=== PATIENT | male | born 1995 | race Caucasian/White ===

== ENCOUNTER 2016-06-09 13:17 | Emergency (ER) | payer SELFPAY ==
[2016-06-09] MEDS ORDERED: TETRACAINE HCL 0.5% OPH SOLN 0.6 ML DROPERETTE OU ONE (13:35)
--- NOTE | 2016-06-09 13:36 | ER Document Report ---
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 6 months ago he had a blowout fracture of the right orbit and right mandible. TRAVEL OUTSIDE OF THE [place] IN LAST 30 DAYS: No - Related Data Allergies/Adverse Reactions: No Known Allergies Allergy (Verified 06/09/16 13:34) Past Medical History - Immunizations Immunizations up to date: Yes Hx Diphtheria, Pertussis, Tetanus Vaccination: Yes
--- NOTE | 2016-06-09 14:59 | ER Document Report ---
ED General - General Chief Complaint: Eye Pain Stated Complaint: EYE PAIN Mode of Arrival: Ambulatory TRAVEL OUTSIDE OF THE [place] IN LAST 30 DAYS: No - HPI Patient complains to provider of: right eye pain Notes: Patient coming in for right eye pain redness with and will discharge earlier this morning. Patient's was seen by myself approximately 6 months ago for a right orbital blowout fracture. Patient followed up with surgery in [place] the surgery was performed patient states he has not followed up since that time. Patient denies any new trauma. - Related Data Allergies/Adverse Reactions: No Known Allergies Allergy (Verified 06/09/16 13:34) Past Medical History - General Information source: Patient - Social History Smoking Status: Never Smoker Chew tobacco use (# tins/day): No Frequency of alcohol use: None Drug Abuse: None Family History: Reviewed & Not Pertinent Patient has suicidal ideation: No Patient has homicidal ideation: No Renal/ Medical History: Denies: Hx Peritoneal Dialysis - Immunizations Immunizations up to date: Yes Hx Diphtheria, Pertussis, Tetanus Vaccination: Yes Review of Systems - Review of Systems Constitutional: No symptoms reported EENT: Eye pain, Eye discharge Cardiovascular: No symptoms reported Respiratory: No symptoms reported Gastrointestinal: No symptoms reported Genitourinary: No symptoms reported Male Genitourinary: No symptoms reported Musculoskeletal: No symptoms reported Skin: No symptoms reported Hematologic/Lymphatic: No symptoms reported Neurological/Psychological: No symptoms reported -: Yes All other systems reviewed and negative Physical Exam - Vital signs Vitals: Pulse Resp BP Pulse Ox 70 18 138/73 H 100 06/09/16 13:21 06/09/16 13:21 06/09/16 13:21 06/09/16 13:21 Interpretation: Normal - General General appearance: Appears well, Alert - HEENT Head: Normocephalic, Atraumatic Eyes: Normal Conjunctiva: Injected Cornea: Normal Extraocular movements intact: Yes Eyelashes: Normal Pupils: PERRL Visual acuity- Right eye: 20/40 Visual acuity- Left eye: 20/30 Visual acuity- Both eyes: 20/30 Corrective lenses worn: No Right intraocular pressure: 20 Left intraocular pressure: 16 - Respiratory Respiratory status: No respiratory distress Chest status: Nontender Breath sounds: Normal Chest palpation: Normal - Cardiovascular Rhythm: Regular Heart sounds: Normal auscultation Murmur: No - Abdominal Inspection: Normal Distension: No distension Bowel sounds: Normal Tenderness: Nontender Organomegaly: No organomegaly - Back Back: Normal, Nontender - Extremities General upper extremity: Normal inspection, Nontender, Normal color, Normal ROM , Normal temperature General lower extremity: Normal inspection, Nontender, Normal color, Normal ROM , Normal temperature, Normal weight bearing. No: Efra's sign - Neurological Neuro grossly intact: Yes Cognition: Normal Orientation: AAOx4 Purlear Coma Scale Eye Opening: Spontaneous [place]ako Coma Scale Verbal: Oriented Purlear Coma Scale Motor: Obeys Commands Flako Coma Scale Total: 15 Speech: Normal Motor strength normal: LUE, RUE, LLE, RLE Sensory: Normal - Psychological Associated symptoms: Normal affect, Normal mood - Skin Skin Temperature: Warm Skin Moisture: Dry Skin Color: Normal Course - Re-evaluation Re-evalutation: 06/09/16 14:57 Patient's examination is normal. Initially patient states he was not taking anything for pain patient will likely has neuropathic pain from the fracture would recommend a rotten. Patient states he is Arcenio taken Neurontin. Explained to patient he can continue to take his Neurontin we will given Polytrim antibiotics eyedrops for possible conjunctivitis is that both of his eyes are injected. Patient is to follow-up with the surgeon in [place]. 06/09/16 14:58 Of note saw the patient for his initial visit and was given a prescription for oxycodone. Patient followed up with his surgeon and then returned stating that the surgeon in [place] because they would not cooperate was not given any narcotics. I did provide the patient with a protection for narcotics today reviewing the patient's narcotic database shows 2 prescriptions from myself and appropriate dates last one being on the and a prescription given to the patient from his facial surgeon that was filled on the . Apparently the surgeon did provide the patient with narcotics Further information can be found my note from initial visit. - Vital Signs Vital signs: Temp Pulse Resp BP Pulse Ox 70 18 138/73 H 100 06/09/16 13:21 06/09/16 13:21 06/09/16 13:21 06/09/16 13:21 Discharge - Discharge Clinical Impression: Ocular pain, right eye Conjunctivitis Qualifiers: Conjunctivitis type: acute Acute conjunctivitis type: unspecified Laterality: bilateral Qualified Code(s): H10.33 - Unspecified acute conjunctivitis, bilateral Condition: Good Disposition: HOME, SELF-CARE Instructions: Conjunctivitis ([facility]) Additional Instructions: Please continue your Neurontin at home. He may also take Motrin and Tylenol for your eye pain. Follow-up with your surgeon in [place] for further evaluation. Your evaluation day reveals no critical etiology for your pain. More likely this is due to disruption of the nerves underneath the right eye. This is a good sign as that is indication that the bones and nerves are still healing Use eyedrops as directed He may also take Benadryl at home for sleep Forms: Return to Work
[2016-06-09] MEDS ORDERED: POLYMYXIN B SULFATE/TMP OPH SOLN 10 ML OU SCH (15:15)
[2016-06-09 15:21] VITALS: BP 122/80
== END 2016-06-09 15:20 | disposition home or self-care (01) ==
LOC: ER 13:17
DX: H57.11 Ocular pain, right eye (principal); H10.33 Unspecified acute conjunctivitis, bilateral
CPT/HCPCS: 99283; J3490

== ENCOUNTER 2016-09-03 12:46 | Emergency (ER) | payer SELFPAY ==
[2016-09-03] MEDS ORDERED: FAMOTIDINE 20 MG TABLET PO ONE (12:57)
[2016-09-03] MEDS ORDERED: DIPHENHYDRAMINE HCL 25 MG CAPSULE PO ONE (12:57)
--- NOTE | 2016-09-03 12:58 | ER Document Report ---
ED Medical Screen (RME) - General Chief Complaint: Swelling Stated Complaint: LEFT HAND PAIN, SWELLING Notes: Patient reports last night he was on [place] on [place] in [facility] when he felt a severe sharp stinging to his left lateral hand felt like something bit him. He reports there was a lot of bugs flying last night due to the extremely warm weather we've had recently. The hand began swelling and has been getting progressively worse. Now the left dorsal hand is very swollen with erythema and tenderness and bruise type feeling. He has never reacted like this to a wasp sting in the past. I have greeted and performed a rapid initial assessment of this patient. A comprehensive ED assessment and evaluation of the patient, analysis of test results and completion of the medical decision making process will be conducted by additional ED providers. TRAVEL OUTSIDE OF THE [place] IN LAST 30 DAYS: No - Related Data Allergies/Adverse Reactions: No Known Allergies Allergy (Verified 06/09/16 13:34) Past Medical History Renal/ Medical History: Denies: Hx Peritoneal Dialysis - Immunizations Immunizations up to date: Yes Hx Diphtheria, Pertussis, Tetanus Vaccination: Yes Physical Exam - Vital signs Vitals: Temp Pulse Resp BP Pulse Ox 97.8 F 86 18 136/76 H 99 09/03/16 12:52 09/03/16 12:52 09/03/16 12:52 09/03/16 12:52 09/03/16 12:52 Course - Vital Signs Vital signs: Temp Pulse Resp BP Pulse Ox 97.8 F 86 18 136/76 H 99 09/03/16 12:52 09/03/16 12:52 09/03/16 12:52 09/03/16 12:52 09/03/16 12:52
--- NOTE | 2016-09-03 14:10 | ER Document Report ---
ED Skin Rash/Insect Bite/Abscs - General Chief Complaint: Swelling Stated Complaint: LEFT HAND PAIN, SWELLING Notes: The patient is a 21-year-old male who presents with left hand pain and swelling over the past day. He was fishing yesterday, stuck his hand in the water and felt a bite or sting. He is unsure if it was an insect or fish. He tried Benadryl and hydrocortisone cream without much relief of his pruritus. He noticed that the rash started spreading up his arm today. Denies fevers, numbness, tingling, open wounds, history of IV drug use, chest pain or shortness of breath. TRAVEL OUTSIDE OF THE [place] IN LAST 30 DAYS: No - Related Data Allergies/Adverse Reactions: No Known Allergies Allergy (Verified 09/03/16 15:35) Past Medical History - General Information source: Patient - Social History Smoking Status: Unknown if Ever Smoked Family History: Reviewed & Not Pertinent Patient has suicidal ideation: No Patient has homicidal ideation: No Renal/ Medical History: Denies: Hx Peritoneal Dialysis - Immunizations Immunizations up to date: Yes Hx Diphtheria, Pertussis, Tetanus Vaccination: Yes Review of Systems - Review of Systems Notes: REVIEW OF SYSTEMS: CONSTITUTIONAL: -fevers, -chills EENT: -eye pain, -difficulty swallowing, -nasal congestion CARDIOVASCULAR:-chest pain, -syncope. RESPIRATORY: -cough, -SOB GASTROINTESTINAL: -abdominal pain, - nausea, -vomiting, -diarrhea GENITOURINARY: -dysuria, -hematuria MUSCULOSKELETAL: -back pain, -neck pain SKIN: +left hand and arm rash HEMATOLOGIC: -easy bruising or bleeding. LYMPHATIC: -swollen, enlarged glands. NEUROLOGICAL: -altered mental status or loss of consciousness, -headache, - neurologic symptoms PSYCHIATRIC: -anxiety, -depression. ALL OTHER SYSTEMS REVIEWED AND NEGATIVE. Physical Exam - Vital signs Vitals: Temp Pulse Resp BP Pulse Ox 97.8 F 86 18 136/76 H 99 09/03/16 12:52 09/03/16 12:52 09/03/16 12:52 09/03/16 12:52 09/03/16 12:52 - Notes Notes: PHYSICAL EXAMINATION: GENERAL: Well-appearing, well-nourished and in no acute distress. HEAD: Atraumatic, normocephalic. EYES: Pupils equal round and reactive to light, extraocular movements intact, sclera anicteric, conjunctiva are normal. ENT: nares patent, oropharynx clear without exudates. Moist mucous membranes. NECK: Normal range of motion, supple without lymphadenopathy LUNGS: Breath sounds clear to auscultation bilaterally and equal. No wheezes rales or rhonchi. HEART: Regular rate and rhythm without murmurs ABDOMEN: Soft, nontender, normoactive bowel sounds. No guarding, no rebound. No masses appreciated. EXTREMITIES: Dorsal surface of left hand with erythema and tenderness up to mid forearm. No abscess noted. NEUROLOGICAL: Cranial nerves grossly intact. Normal speech, normal gait. Normal sensory, motor, and reflex exams. PSYCH: Normal mood, normal affect. Course - Re-evaluation Re-evalutation: Patient attempted Benadryl and hydrocortisone cream without relief of his symptoms. With the fresh-water fishing and a possible bite, will cover patient for fresh water infections causing cellulitis with doxycycline. Given strict return precautions and he understands. - Vital Signs Vital signs: Temp Pulse Resp BP Pulse Ox 98.4 F 90 16 134/82 H 99 09/03/16 14:55 09/03/16 14:55 09/03/16 14:55 09/03/16 14:55 09/03/16 14:55 Discharge - Discharge Clinical Impression: Cellulitis of arm, left Condition: Stable Disposition: HOME, SELF-CARE Additional Instructions: CELLULITIS: You have an infection of your skin and underlying soft tissues called cellulitis. This is due to bacteria, which can enter through any break in the skin, or even through an irritated hair follicle. Untreated, cellulitis will usually worsen. Antibiotics are required. Usually, warm packs or warm soaks, and elevation of the infected area are recommended. You should start getting better within 24 to 36 hours. Most infections respond quickly to the right medication. Follow-up care is important, however, to check for abscess (boil) formation, unsuspected foreign body, or resistant infection. If you develop fever, chills, or if the area of infection is becoming rapidly more swollen or painful, call the doctor at once. MRSA CELLULITIS: You have an infection of your skin and underlying soft tissues called cellulitis. This is due to bacteria, which can enter through any break in the skin, or even through an irritated hair follicle. Untreated, cellulitis will usually worsen and may form an abscess which requires draining. Although many bacterial organisms can cause cellulitis and abscess formations, the most likely bacteria is Methicillin-Resistant Staph Aureus, or MRSA for short. Antibiotics are required. Usually, warm packs or warm soaks, and elevation of the infected area are recommended. You should start getting better within 24 to 36 hours. Most infections respond quickly to the right medication. Follow-up care is important, however, to check for abscess (boil) formation, unsuspected foreign body, or resistant infection. If you develop fever, chills, or if the area of infection is becoming rapidly more swollen or painful, call the doctor at once. ANTIBIOTIC THERAPY: You have been given an antibiotic prescription. It's important that you take all the medication, unless instructed otherwise by your physician. Failure to complete the entire course can result in relapse of your condition. Common side effects of antibiotics include nausea, intestinal cramping, or diarrhea. Women may develop vaginal yeast infections, and babies can get yeast (thrush) in the mouth following the use of antibiotics. Contact your physician if you develop significant side effects from this medication. Allergy to this antibiotic can result in hives, wheezing, faintness, or itching. If symptoms of allergy occur, stop the medication and call the doctor. DOXYCYCLINE: Doxycycline (Vibramycin, Doryx) is an antibiotic of the tetracycline family. This type of drug is useful for infections of the respiratory tract and genital tract, and is sometimes used for intestinal infections. Unlike most tetracyclines, doxycycline can be taken with food. It is longer acting, and (usually) less prone to side effects than regular tetracycline. Tetracycline antibiotics can stain immature teeth and SHOULD NOT BE TAKEN BY CHILDREN, NURSING MOTHERS, OR WOMEN. Tetracyclines can make you more prone to sunburn. Abdominal cramping, nausea, and diarrhea are occasional side effects. Women may experience vaginal yeast infections. Call the doctor at once if you develop hives, itching, shortness of breath , or lightheadedness. FOLLOW-UP CARE: If you have been referred to a physician for follow-up care, call the physician s office for an appointment as you were instructed or within the next two days. If you experience worsening or a significant change in your symptoms, notify the physician immediately or return to the Emergency Department at any time for re-evaluation. Prescriptions: Doxycycline Hyclate 100 mg PO BID #14 capsule
[2016-09-03 15:39] VITALS: BP 134/82
== END 2016-09-03 14:57 | disposition home or self-care (01) ==
LOC: ER 12:46
DX: L03.114 Cellulitis of left upper limb (principal)
CPT/HCPCS: 99283

== ENCOUNTER 2016-09-07 23:10 | Emergency (ER) | payer SELFPAY ==
[2016-09-08 01:34] VITALS: BP 121/67
== END 2016-09-08 03:03 | disposition left against medical advice (07) ==
LOC: ER 23:10
DX: Z53.21 Procedure and treatment not carried out due to patient leaving prior to being seen by health care provider (principal)

== ENCOUNTER 2016-09-10 16:21 | Emergency (ER) | payer SELFPAY ==
[2016-09-10] MEDS ORDERED: IBUPROFEN 800 MG TABLET PO ONE (17:54)
--- NOTE | 2016-09-10 18:08 | ER Document Report ---
HPI - HPI Patient complains to provider of: abdomen indrown hair Onset: Other - 2 days Quality of pain: Achy Pain Level: 4 Context: 21 yo male dug out ingrown hair low abdomen just above the waist line. NO fever. No hx MRSA. Associated Symptoms: None Exacerbated by: Denies Relieved by: Denies - ROS ROS below otherwise negative: Yes Systems Reviewed and Negative: Yes All other systems reviewed and negative - DERM Skin Color: Normal, [place] Past Medical History - General Information source: Patient - Social History Smoking Status: Current Every Day Smoker Frequency of alcohol use: Occasional Drug Abuse: None Lives with: Family Family History: Reviewed & Not Pertinent - Medical History Medical History: Negative Renal/ Medical History: Denies: Hx Peritoneal Dialysis Surgical Hx: Negative - Immunizations Immunizations up to date: Yes Hx Diphtheria, Pertussis, Tetanus Vaccination: Yes Vertical Provider Document - CONSTITUTIONAL Agree With Documented VS: Yes Exam Limitations: No Limitations General Appearance: No Apparent Distress - INFECTION CONTROL TRAVEL OUTSIDE OF THE [place] IN LAST 30 DAYS: No - HEENT HEENT: Normocephalic - NECK Neck: Supple - RESPIRATORY Respiratory: Breath Sounds Normal, No Respiratory Distress - CARDIOVASCULAR Cardiovascular: Regular Rate, Regular Rhythm - GI/ABDOMEN Notes: crusted follicular lesion without abscess central low abdomen., no lymphangitis - MUSCULOSKELETAL/EXTREMETIES Musculoskeletal/Extremeties: ENRRIQUE GALVAN - NEURO Level of Consciousness: Awake, Alert, Appropriate Motor/Sensory: No Motor Deficit, No Sensory Deficit Discharge - Discharge Clinical Impression: low abdomen folliculitis Condition: Good Disposition: HOME, SELF-CARE Instructions: Bactroban Ointment ([facility]), Doxycycline ([facility]), Folliculitis ([facility]), Use of Rkor-Guv-Cecaeaf Ibuprofen ([facility]), Acetaminophen Additional Instructions: antibacterial soap bactroban three times per day for 3 days to the lesion to er if worse Please complete the patient satisfaction survey if you get one, and return it.. If you do not receive a survey, then you can go to the [facility] website, [email or web address] and place your comments about your very good care. Thank you very much. It was a pleasure being your medical provider today. Prescriptions: Doxycycline Hyclate 100 mg PO BID #14 tablet Mupirocin [Bactroban 2% Ointment 22 gm] 1 applic TP TID #22 gm
[2016-09-10 18:21] VITALS: BP 136/84
== END 2016-09-10 18:36 | disposition home or self-care (01) ==
LOC: ER 16:21
DX: L73.9 Follicular disorder, unspecified (principal); R10.30 Lower abdominal pain, unspecified; F17.200 Nicotine dependence, unspecified, uncomplicated
CPT/HCPCS: 99283

== ENCOUNTER 2016-09-28 09:05 | Emergency (ER) | payer SELFPAY ==
[2016-09-28 09:10] VITALS: BP 121/81
[2016-09-28] MEDS ORDERED: SULFAMETHOXAZOLE/TRIMETHOPRIM 800-160 MG TABLET PO ONE (09:18)
[2016-09-28] MEDS ORDERED: IBUPROFEN 600 MG TABLET PO ONE (09:18)
[2016-09-28] MEDS ORDERED: HYDROCODONE/ACETAMINOPHEN 5-325 MG TABLET PO ONE (09:18)
--- NOTE | 2016-09-28 09:21 | ER Document Report ---
ED Skin Rash/Insect Bite/Abscs - General Chief Complaint: Abscess Stated Complaint: LEG PAIN Time Seen by Provider: 09/28/16 09:18 Notes: The patient is a 21-year-old male who presents with 2 days of a right leg abscess. He drained the abscess, but he is now noticing redness around the area. 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 He denies injury , history of IVDA, fevers, numbness, tingling, difficulty walking or any other wounds. TRAVEL OUTSIDE OF THE [place] IN LAST 30 DAYS: No - Related Data Allergies/Adverse Reactions: No Known Allergies Allergy (Verified 09/03/16 15:35) Past Medical History - General Information source: Patient - Social History Smoking Status: Current Every Day Smoker Frequency of alcohol use: None Drug Abuse: None Family History: Reviewed & Not Pertinent Patient has suicidal ideation: No Patient has homicidal ideation: No Renal/ Medical History: Denies: Hx Peritoneal Dialysis - Immunizations Immunizations up to date: Yes Hx Diphtheria, Pertussis, Tetanus Vaccination: Yes Review of Systems - Review of Systems Notes: REVIEW OF SYSTEMS: CONSTITUTIONAL: -fevers, -chills EENT: -eye pain, -difficulty swallowing, -nasal congestion CARDIOVASCULAR:-chest pain, -syncope. RESPIRATORY: -cough, -SOB GASTROINTESTINAL: -abdominal pain, - nausea, -vomiting, -diarrhea GENITOURINARY: -dysuria, -hematuria MUSCULOSKELETAL: -back pain, -neck pain SKIN: +rash on right leg HEMATOLOGIC: -easy bruising or bleeding. LYMPHATIC: -swollen, enlarged glands. NEUROLOGICAL: -altered mental status or loss of consciousness, -headache, - neurologic symptoms PSYCHIATRIC: -anxiety, -depression. ALL OTHER SYSTEMS REVIEWED AND NEGATIVE. Physical Exam - Vital signs Vitals: Temp Pulse Resp BP Pulse Ox 98.6 F 96 18 121/81 99 09/28/16 09:09 09/28/16 09:09 09/28/16 09:09 09/28/16 09:09 09/28/16 09:09 - Notes Notes: PHYSICAL EXAMINATION: GENERAL: Well-appearing, well-nourished and in no acute distress. HEAD: Atraumatic, normocephalic. EYES: Pupils equal round and reactive to light, extraocular movements intact, sclera anicteric, conjunctiva are normal. ENT: nares patent, oropharynx clear without exudates. Moist mucous membranes. NECK: Normal range of motion, supple without lymphadenopathy LUNGS: Breath sounds clear to auscultation bilaterally and equal. No wheezes rales or rhonchi. HEART: Regular rate and rhythm without murmurs ABDOMEN: Soft, nontender, normoactive bowel sounds. No guarding, no rebound. No masses appreciated. EXTREMITIES: Normal range of motion, no pitting or edema. No cyanosis. Strong distal pulses. NEUROLOGICAL: Cranial nerves grossly intact. Normal speech, normal gait. Normal sensory, motor, and reflex exams. PSYCH: Normal mood, normal affect. SKIN: Crusted over 1 cm previously drained abscess with 4 cm surrounding confluent erythematous area over right lateral lower leg Course - Re-evaluation Re-evalutation: Patient appears well. He already drained the abscess at home, but now has spreading cellulitis over his right leg. Area of cellulitis marked with skin marker. He denies any injections into the skin or any injuries. Will treat him with Bactrim. Given strict return precautions and he understands. 09/28/16 09:28 As patient was leaving, an insulin needle fell out of his pocket. Suspect IVDA. - Vital Signs Vital signs: Temp Pulse Resp BP Pulse Ox 98.6 F 96 18 121/81 99 09/28/16 09:09 09/28/16 09:09 09/28/16 09:09 09/28/16 09:09 09/28/16 09:09 Discharge - Discharge Clinical Impression: Cellulitis Qualifiers: Site of cellulitis: extremity Site of cellulitis of extremity: lower extremity Laterality: right Qualified Code(s): L03.115 - Cellulitis of right lower limb Condition: Stable Disposition: HOME, SELF-CARE Additional Instructions: CELLULITIS: You have an infection of your skin and underlying soft tissues called cellulitis. This is due to bacteria, which can enter through any break in the skin, or even through an irritated hair follicle. Untreated, cellulitis will usually worsen. Antibiotics are required. Usually, warm packs or warm soaks, and elevation of the infected area are recommended. You should start getting better within 24 to 36 hours. Most infections respond quickly to the right medication. Follow-up care is important, however, to check for abscess (boil) formation, unsuspected foreign body, or resistant infection. If you develop fever, chills, or if the area of infection is becoming rapidly more swollen or painful, call the doctor at once. MRSA CELLULITIS: You have an infection of your skin and underlying soft tissues called cellulitis. This is due to bacteria, which can enter through any break in the skin, or even through an irritated hair follicle. Untreated, cellulitis will usually worsen and may form an abscess which requires draining. Although many bacterial organisms can cause cellulitis and abscess formations, the most likely bacteria is Methicillin-Resistant Staph Aureus, or MRSA for short. Antibiotics are required. Usually, warm packs or warm soaks, and elevation of the infected area are recommended. You should start getting better within 24 to 36 hours. Most infections respond quickly to the right medication. Follow-up care is important, however, to check for abscess (boil) formation, unsuspected foreign body, or resistant infection. If you develop fever, chills, or if the area of infection is becoming rapidly more swollen or painful, call the doctor at once. ANTIBIOTIC THERAPY: You have been given an antibiotic prescription. It's important that you take all the medication, unless instructed otherwise by your physician. Failure to complete the entire course can result in relapse of your condition. Common side effects of antibiotics include nausea, intestinal cramping, or diarrhea. Women may develop vaginal yeast infections, and babies can get yeast (thrush) in the mouth following the use of antibiotics. Contact your physician if you develop significant side effects from this medication. Allergy to this antibiotic can result in hives, wheezing, faintness, or itching. If symptoms of allergy occur, stop the medication and call the doctor. TRIMETHOPRIM-SULFA: You have been given a prescription for trimethoprim-sulfa (TMS, Septra, Bactrim). This is a combination antibiotic of the sulfa class, often used for urinary tract infections, middle ear infections, bronchitis, shigella intestinal infection, and Pneumocystis pneumonia. TMS is usually well-tolerated. Occasional side effects include nausea and decreased appetite. Septra is not recommended for infants less than two months of age. Do not take this medication if you have experienced severe side effects or allergy to sulfa medicine. You should stop this medicine at once and contact your physician if you develop any rash, joint pain, shortness of breath, bruising, or jaundice ( yellow color in the skin), or if you develop any other new or unusual symptoms. FOLLOW-UP CARE: If you have been referred to a physician for follow-up care, call the physician s office for an appointment as you were instructed or within the next two days. If you experience worsening or a significant change in your symptoms, notify the physician immediately or return to the Emergency Department at any time for re-evaluation. Prescriptions: Sulfamethoxazole/Trimethoprim [Bactrim Ds Tablet] 2 each PO Q12H 10 Days
== END 2016-09-28 09:26 | disposition home or self-care (01) ==
LOC: ER 09:05
DX: L03.115 Cellulitis of right lower limb (principal); F17.200 Nicotine dependence, unspecified, uncomplicated
CPT/HCPCS: 99283

== ENCOUNTER 2016-09-30 19:53 | Emergency (ER) | payer SELFPAY ==
--- NOTE | 2016-09-30 21:36 | ER Document Report ---
ED Extremity Problem, Lower - General Chief Complaint: Leg Pain Stated Complaint: SKIN PROBLEM Time Seen by Provider: 09/30/16 21:29 Notes: The patient is a 21-year-old male who presents with 4 days of a rash over his right leg. He was seen in the emergency room 2 days ago and discharged home with Bactrim for a cellulitis. He says that he is taking it, but is noticing that the rash is mildly worse. He had an abscess, which he drained himself. He denies fevers, numbness, tingling, calf swelling, nausea, vomiting or difficulty walking. He denies IVDA, but an insulin needle fell out of his pocket as he was leaving the ER 2 days ago. TRAVEL OUTSIDE OF THE [place] IN LAST 30 DAYS: No - Related Data Allergies/Adverse Reactions: No Known Allergies Allergy (Verified 09/03/16 15:35) Past Medical History - General Information source: Patient - Social History Smoking Status: Current Every Day Smoker Family History: Reviewed & Not Pertinent Patient has suicidal ideation: No Patient has homicidal ideation: No Renal/ Medical History: Denies: Hx Peritoneal Dialysis - Immunizations Immunizations up to date: Yes Hx Diphtheria, Pertussis, Tetanus Vaccination: Yes Review of Systems - Review of Systems Notes: REVIEW OF SYSTEMS: CONSTITUTIONAL: -fevers, -chills EENT: -eye pain, -difficulty swallowing, -nasal congestion CARDIOVASCULAR:-chest pain, -syncope. RESPIRATORY: -cough, -SOB GASTROINTESTINAL: -abdominal pain, - nausea, -vomiting, -diarrhea GENITOURINARY: -dysuria, -hematuria MUSCULOSKELETAL: -back pain, -neck pain SKIN: +rash over right lower extremity HEMATOLOGIC: -easy bruising or bleeding. LYMPHATIC: -swollen, enlarged glands. NEUROLOGICAL: -altered mental status or loss of consciousness, -headache, - neurologic symptoms PSYCHIATRIC: -anxiety, -depression. ALL OTHER SYSTEMS REVIEWED AND NEGATIVE. Physical Exam - Vital signs Vitals: Temp Resp BP Pulse Ox 97.3 F 16 148/71 H 97 09/30/16 21:10 09/30/16 21:10 09/30/16 21:10 09/30/16 21:10 - Notes Notes: PHYSICAL EXAMINATION: GENERAL: Well-appearing, well-nourished and in no acute distress. HEAD: Atraumatic, normocephalic. EYES: Pupils equal round and reactive to light, extraocular movements intact, sclera anicteric, conjunctiva are normal. ENT: nares patent, oropharynx clear without exudates. Moist mucous membranes. NECK: Normal range of motion, supple without lymphadenopathy LUNGS: Breath sounds clear to auscultation bilaterally and equal. No wheezes rales or rhonchi. HEART: Regular rate and rhythm without murmurs ABDOMEN: Soft, nontender, normoactive bowel sounds. No guarding, no rebound. No masses appreciated. EXTREMITIES: Normal range of motion, no pitting or edema. No cyanosis. NEUROLOGICAL: Cranial nerves grossly intact. Normal speech, normal gait. Normal sensory, motor, and reflex exams. PSYCH: Normal mood, normal affect. SKIN: Erythematous area over right anterior lower leg. Old eschar over left thigh without fluctuance. Course - Re-evaluation Re-evalutation: Patient is afebrile. He is well-appearing. Strong pulses. Will switch his anabiotic to clindamycin. No abscess to drain. Given return precautions and he understands. - Vital Signs Vital signs: Temp Pulse Resp BP Pulse Ox 98.6 F 90 18 115/78 98 09/30/16 22:09 09/30/16 22:09 09/30/16 22:09 09/30/16 22:09 09/30/16 22:09 Discharge - Discharge Clinical Impression: Cellulitis Qualifiers: Site of cellulitis: extremity Site of cellulitis of extremity: lower extremity Laterality: right Qualified Code(s): L03.115 - Cellulitis of right lower limb Condition: Stable Disposition: HOME, SELF-CARE Additional Instructions: CELLULITIS: You have an infection of your skin and underlying soft tissues called cellulitis. This is due to bacteria, which can enter through any break in the skin, or even through an irritated hair follicle. Untreated, cellulitis will usually worsen. Antibiotics are required. Usually, warm packs or warm soaks, and elevation of the infected area are recommended. You should start getting better within 24 to 36 hours. Most infections respond quickly to the right medication. Follow-up care is important, however, to check for abscess (boil) formation, unsuspected foreign body, or resistant infection. If you develop fever, chills, or if the area of infection is becoming rapidly more swollen or painful, call the doctor at once. MRSA CELLULITIS: You have an infection of your skin and underlying soft tissues called cellulitis. This is due to bacteria, which can enter through any break in the skin, or even through an irritated hair follicle. Untreated, cellulitis will usually worsen and may form an abscess which requires draining. Although many bacterial organisms can cause cellulitis and abscess formations, the most likely bacteria is Methicillin-Resistant Staph Aureus, or MRSA for short. Antibiotics are required. Usually, warm packs or warm soaks, and elevation of the infected area are recommended. You should start getting better within 24 to 36 hours. Most infections respond quickly to the right medication. Follow-up care is important, however, to check for abscess (boil) formation, unsuspected foreign body, or resistant infection. If you develop fever, chills, or if the area of infection is becoming rapidly more swollen or painful, call the doctor at once. ANTIBIOTIC THERAPY: You have been given an antibiotic prescription. It's important that you take all the medication, unless instructed otherwise by your physician. Failure to complete the entire course can result in relapse of your condition. Common side effects of antibiotics include nausea, intestinal cramping, or diarrhea. Women may develop vaginal yeast infections, and babies can get yeast (thrush) in the mouth following the use of antibiotics. Contact your physician if you develop significant side effects from this medication. Allergy to this antibiotic can result in hives, wheezing, faintness, or itching. If symptoms of allergy occur, stop the medication and call the doctor. TRIMETHOPRIM-SULFA: You have been given a prescription for trimethoprim-sulfa (TMS, Septra, Bactrim). This is a combination antibiotic of the sulfa class, often used for urinary tract infections, middle ear infections, bronchitis, shigella intestinal infection, and Pneumocystis pneumonia. TMS is usually well-tolerated. Occasional side effects include nausea and decreased appetite. Septra is not recommended for infants less than two months of age. Do not take this medication if you have experienced severe side effects or allergy to sulfa medicine. You should stop this medicine at once and contact your physician if you develop any rash, joint pain, shortness of breath, bruising, or jaundice ( yellow color in the skin), or if you develop any other new or unusual symptoms. CLINDAMYCIN: You have been given a prescription for the antibiotic clindamycin. It is often prescribed for infections in the mouth, such as dental infections or abscesses, and for skin infections due to MRSA. It's important that you take all the medication, unless instructed otherwise by your physician. Failure to complete the entire course can result in relapse of your condition. Common side effects of antibiotics include nausea, intestinal cramping, or diarrhea. Women may develop vaginal yeast infections, and babies can get yeast (thrush) in the mouth following the use of antibiotics. Contact your physician if you develop significant side effects from this medication. Allergy to this antibiotic can result in hives, wheezing, faintness, or itching. If symptoms of allergy occur, stop the medication and call the doctor. ORAL NARCOTIC MEDICATION: You have been given a prescription for pain control. This medication is a narcotic. It's best taken with food, as nausea can result if taken on an empty stomach. Don't operate machinery or drive within six hours of taking this medication. Do not combine this medicine with alcohol, or with any medication which can cause sedation (such as cold tablets or sleeping pills) unless you get permission from the physician. Narcotics tend to cause constipation. If possible, drink plenty of fluids and eat a diet high in fiber and fruits. Please be aware that prescription narcotics also have the potential for abuse. People become addicted to these medications because of the general sense of wellbeing that they induce. This feeling along with a significant reduction in tension, anxiety, and aggression provides a stimulating seductive quality to these drugs. Once your pain is under control, we encourage you to discard your unused narcotics. FOLLOW-UP CARE: If you have been referred to a physician for follow-up care, call the physician s office for an appointment as you were instructed or within the next two days. If you experience worsening or a significant change in your symptoms, notify the physician immediately or return to the Emergency Department at any time for re-evaluation. Prescriptions: Acetaminophen with Codeine [Tylenol #3 Tablet] 1 each PO Q4HP PRN #10 tablet PRN Reason: Clindamycin HCl 300 mg PO Q8H 10 Days Referrals: ALLY RODRIGUEZ MD [[facility]] - Follow up as needed
[2016-09-30 22:11] VITALS: BP 115/78
== END 2016-09-30 22:09 | disposition home or self-care (01) ==
LOC: ER 19:53
DX: L03.115 Cellulitis of right lower limb (principal); F17.200 Nicotine dependence, unspecified, uncomplicated
CPT/HCPCS: 99283

== ENCOUNTER 2017-12-07 20:21 | Emergency (ER) | payer SELFPAY ==
[2017-12-07] MEDS ORDERED: ONDANSETRON 4 MG TAB.RAPDIS PO ONE (22:14)
--- NOTE | 2017-12-07 22:17 | ER Document Report ---
ED Medical Screen (RME) - General Chief Complaint: Vomiting Stated Complaint: VOMITING Time Seen by Provider: 12/07/17 22:14 Mode of Arrival: Ambulatory Information source: Patient Notes: 22-year-old male presents to ED for complaint of nausea vomiting and not keeping any food down with muscle cramping since . He states he was out in the sun got overheated and thinks he had heat exhaustion. He states he has not been able to keep food or fluids down and has had body cramping since then. He states at the time that he was overheated he poured water over his body and over his head but did not stop the cramping. Patient is alert and oriented respirations regular and unlabored speaking in full sentences walking with a even steady gait. He states his urine is clear and normal colored at this time. He states he smokes a half pack a day does not drink and does not use drugs. I have greeted and performed a rapid initial assessment of this patient. A comprehensive ED assessment and evaluation of the patient, analysis of test results and completion of medical decision making process will be conducted by an additional ED providers. TRAVEL OUTSIDE OF THE [place] IN LAST 30 DAYS: No - Related Data Allergies/Adverse Reactions: No Known Allergies Allergy (Verified 09/03/16 15:35) Past Medical History Renal/ Medical History: Denies: Hx Peritoneal Dialysis - Immunizations Immunizations up to date: Yes Hx Diphtheria, Pertussis, Tetanus Vaccination: Yes Physical Exam - Vital signs Vitals: Temp Pulse Resp BP Pulse Ox 98.1 F 86 16 127/72 H 98 12/07/17 20:57 12/07/17 20:57 12/07/17 20:57 12/07/17 20:57 12/07/17 20:57 Course - Vital Signs Vital signs: Temp Pulse Resp BP Pulse Ox 98.1 F 86 16 127/72 H 98 12/07/17 20:57 12/07/17 20:57 12/07/17 20:57 12/07/17 20:57 12/07/17 20:57
[2017-12-07] MEDS ORDERED: NORMAL SALINE 1000 ML 1,000 ML IV ONE (22:57)
[2017-12-07 23:07] LABS: HEMOGLOBIN 19.5 g/dL (13.5-17.0); MEAN CORPUSCULAR HEMOGLOBIN 28.7 pg (27.0-33.4); MEAN CORPUSCULAR HGB CONC 34.8 g/dL (32.0-36.0); MEAN CORPUSCULAR VOLUME 83 fl (80-97); PLATELET COUNT 317 10^3/uL (150-450); RED BLOOD COUNT 6.79 10^6/uL (4.35-5.55)
[2017-12-07 23:15] LABS: APPEARANCE,URINE CLEAR; BILIRUBIN,URINE NEGATIVE (NEGATIVE); COLOR,URINE YELLOW; GLUCOSE, URINE 50 mg/dL (NEGATIVE); HEMATOCRIT 56.1 % (37.9-51.0); KETONES,URINE NEGATIVE (NEGATIVE); LEUKOCYTE ESTERASE,URINE NEGATIVE (NEGATIVE); NITRITE,URINE NEGATIVE (NEGATIVE); PROTEIN,URINE 30 mg/dL (NEGATIVE); URINE SPECIFIC GRAVITY 1.018; UROBILINOGEN,URINE NEGATIVE mg/dL (<2.0)
[2017-12-07 23:25] LABS: ALANINE AMINOTRANSFERASE 68 U/L (21-72); ALBUMIN 5.2 g/dL (3.5-5.0); ALKALINE PHOSPHATASE 84 U/L (38-126); ASPARTATE AMINO TRANSFERASE 71 U/L (17-59); BILIRUBIN,DIRECT 0.4 mg/dL (0.0-0.4); BILIRUBIN,TOTAL 1.4 mg/dL (0.2-1.3); BLOOD UREA NITROGEN 73 mg/dL (7-20); CALCIUM 9.7 mg/dL (8.4-10.2); CHLORIDE 74 mmol/L (98-107); CREATINE KINASE 1160 U/L (55-170); GLUCOSE 87 mg/dL (75-110); POTASSIUM 3.7 mmol/L (3.6-5.0); SODIUM 134.1 mmol/L (137-145); TOTAL PROTEIN 9.1 g/dL (6.3-8.2)
[2017-12-07 23:31] LABS: CARBON DIOXIDE 39 mmol/L (22-30)
[2017-12-07 23:34] LABS: BASOPHILS % (MANUAL) 1 % (0-2); EOSINOPHILS % (MANUAL) 1 % (0-6); LYMPHOCYTES % (MANUAL) 21 % (13-45); MONOCYTES % (MANUAL) 3 % (3-13); SEGMENTED NEUTROPHILS % (MAN) 71 % (42-78); TOTAL CELLS COUNTED 100
[2017-12-07 23:38] LABS: ANION GAP 21 (5-19); PLATELET COMMENT ADEQUATE; SPHEROCYTES 2+
[2017-12-07 23:43] VITALS: BP 133/74
[2017-12-07] MEDS ORDERED: RINGERS SOLUTION,LACTATED 1,000 ML IV ONE (23:44)
[2017-12-07 23:46] LABS: WHITE BLOOD COUNT 13.1 10^3/uL (4.0-10.5)
--- NOTE | 2017-12-07 23:50 | ER Document Report ---
ED General - General Chief Complaint: Vomiting Stated Complaint: VOMITING Time Seen by Provider: 12/07/17 22:14 Mode of Arrival: Ambulatory Notes: Patient is a 22-year-old male without chronic medical problems who presents with 3 days of nausea, vomiting, muscle spasms and body aches. He states that the started 3 days ago while he was working out in the heat and he became lightheaded and almost passed out. He states that since that time his continue to work outside but has been trying to take increased fluids unsuccessfully however. He notes that he continues to vomit frequently and is often unable to tolerate oral intake. He notes tonight was the first time that he is unable to tolerate oral intake at a decent pace in the past 3 days. He denies any history of similar symptoms in the past. He denies any abdominal pain. No focal weakness, numbness, headache or neck pain. He does not have a general doctor. TRAVEL OUTSIDE OF THE [place] IN LAST 30 DAYS: No - Related Data Allergies/Adverse Reactions: No Known Allergies Allergy (Verified 12/07/17 23:41) Past Medical History - General Information source: Patient - Social History Smoking Status: Never Smoker Frequency of alcohol use: None Drug Abuse: None Lives with: Spouse/Significant other Family History: Reviewed & Not Pertinent Renal/ Medical History: Denies: Hx Peritoneal Dialysis - Immunizations Immunizations up to date: Yes Hx Diphtheria, Pertussis, Tetanus Vaccination: Yes Review of Systems - Review of Systems Notes: Constitutional: Negative for fever. HENT: Negative for sore throat. Eyes: Negative for visual changes. Cardiovascular: Negative for chest pain. Respiratory: Negative for shortness of breath. Gastrointestinal: Positive for nausea and vomiting Genitourinary: Negative for dysuria. Musculoskeletal: Negative for back pain. Skin: Negative for rash. Neurological: Negative for headaches, weakness or numbness. 10 point ROS negative except as marked above and in HPI. Physical Exam - Vital signs Vitals: Temp Pulse Resp BP Pulse Ox 98.1 F 86 16 127/72 H 98 12/07/17 20:57 12/07/17 20:57 12/07/17 20:57 12/07/17 20:57 12/07/17 20:57 Interpretation: Normal Notes: PHYSICAL EXAMINATION: GENERAL: Well-appearing, well-nourished and in no acute distress. HEAD: Atraumatic, normocephalic. EYES: Pupils equal round and reactive to light, extraocular movements intact, sclera anicteric, conjunctiva are normal. ENT: nares patent, oropharynx clear without exudates. Moderately dry mucous membranes. NECK: Normal range of motion, supple without lymphadenopathy LUNGS: Breath sounds clear to auscultation bilaterally and equal. No wheezes rales or rhonchi. HEART: Regular rate and rhythm without murmurs ABDOMEN: Soft, nontender, normoactive bowel sounds. No guarding, no rebound. No masses appreciated. EXTREMITIES: Normal range of motion, no pitting or edema. No cyanosis. NEUROLOGICAL: No focal neurological deficits. Moves all extremities spontaneously and on command. PSYCH: Normal mood, normal affect. SKIN: Warm, Dry, normal turgor, no rashes or lesions noted. Course - Re-evaluation Re-evalutation: 12/08/17 01:59 Patient presents with nausea, vomiting, lightheadedness after being exposed to the heat repeatedly over the past 3 days. States that the first time he has been able tolerate some fluid has been tonight. Labs show an acute kidney injury with mild elevation of CK. Patient is drinking fluids have some of my assessment and eating chips. His examination is otherwise completely unremarkable. Will provide 2 L of IV fluid, recheck basic metabolic panel to determine if he is stable for discharge 12/08/17 02:58 The patient is unwilling to remain in the emergency department for a recheck of his laboratories. He has agreed to a blood draw will not stay regardless of the results. The patient has chosen to leave the facility against medical advice. The relevant issues have been reviewed and discussed with the patient and family at the bedside. At the time of this assessment there is no indication for involuntary commitment. The patient is alert, oriented, and able to express clearly their reasoning for not wanting to remain in the emergency department for further treatment. The patient is not clinically psychotic, intoxicated, and denies and suicidal ideation. Differential or suspected diagnoses based on medical screening exam: Acute kidney dysfunction, rhabdomyolysis The patient is aware of the concerning diagnoses and acknowledges understanding of the reasons for the following recommendations: Monitoring, repeat laboratory work, potentially hospitalization The following risks were explained: , worsening kidney dysfunction, need for dialysis, permanent disability, loss of function Clinical impression: Patient is competent to make decisions regarding the medical that is being offered. - Vital Signs Vital signs: Temp Pulse Resp BP Pulse Ox 98.6 F 86 18 133/74 H 100 12/07/17 23:38 12/07/17 23:38 12/07/17 23:38 12/07/17 23:38 12/07/17 23:38 - Laboratory Result Diagrams: 12/07/17 22:50 12/07/17 22:50 Laboratory results interpreted by me: 12/07/17 12/07/17 12/07/17 22:50 22:50 22:50 WBC 13.1 H RBC 6.79 H Hgb 19.5 H Hct 56.1 H Abs Neuts (Manual) 0.0 L Abs Lymphs (Manual) 0.0 L Abs Monocytes (Manual) 0.0 L Sodium 134.1 L Chloride 74 L Carbon Dioxide 39 H Anion Gap 21 H BUN 73 H Creatinine 2.21 H Est GFR ( Amer) 44 L Est GFR (Non-Af Amer) 37 L Total Bilirubin 1.4 H AST 71 H Creatine Kinase 1160 H Total Protein 9.1 H Albumin 5.2 H Urine Protein 30 H Urine Glucose (UA) 50 H Urine Blood SMALL H Discharge - Discharge Clinical Impression: Dehydration, Muscle cramps, Near syncope Heat exposure Qualifiers: Encounter type: initial encounter Qualified Code(s): T67.9XXA - Effect of heat and light, unspecified, initial encounter Nausea and vomiting Qualifiers: Vomiting type: unspecified Vomiting Intractability: non-intractable Qualified Code(s): R11.2 - Nausea with vomiting, unspecified Condition: Good Disposition: AGAINST MEDICAL ADVICE Additional Instructions: Your leaving AGAINST MEDICAL ADVICE. I have recommended that she remain in the emergency room for recheck of your blood work to ensure that your kidney function has normalized. You need to avoid the heat, take tomorrow off, and ensure that you taking frequent breaks and drink plenty of fluids need to return to the work. Please be sure to drink plenty of fluids while out in the heat. You can purchase packets of electrolyte replacement solutions such as Pedialyte or propel that you can add to plain water. This will help to make sure that you are getting adequate electrolytes in addition to fluids while working outside. Please return to the emergency department if you pass out, developed diffuse muscle cramping, have persistent vomiting, or have any other symptoms that are worrisome to you. Forms: Return to Work
[2017-12-08 03:33] LABS: ANION GAP 14 (5-19); BLOOD UREA NITROGEN 54 mg/dL (7-20); CALCIUM 8.6 mg/dL (8.4-10.2); CARBON DIOXIDE 36 mmol/L (22-30); CHLORIDE 85 mmol/L (98-107); GLUCOSE 111 mg/dL (75-110); POTASSIUM 3.1 mmol/L (3.6-5.0); SODIUM 135.4 mmol/L (137-145)
--- NOTE | 2017-12-08 09:57 | EKG REPORT ---
SEVERITY:- ABNORMAL ECG - SINUS RHYTHM PROLONGED QT INTERVAL : Confirmed by: Cristopher Aburto 08-Dec-2017 09:57:01
== END 2017-12-08 03:17 | disposition left against medical advice (07) ==
LOC: ER 20:21
DX: E86.0 Dehydration (principal); R11.2 Nausea with vomiting, unspecified; T67.9XXA Effect of heat and light, unspecified, initial encounter; M62.838 Other muscle spasm; R55 Syncope and collapse; X58.XXXA Exposure to other specified factors, initial encounter
CPT/HCPCS: 93005; 99284; 96360; 36415; 82550; 85025; 80048; 80053; 81001; 93010; S0119; J7030; J7120

== ENCOUNTER 2019-06-25 10:24 | Emergency (ER) | payer SELFPAY ==
[2019-06-25] MEDS ORDERED: CEPHALEXIN 500 MG CAPSULE PO ONE (11:17)
--- NOTE | 2019-06-25 11:21 | ER Document Report ---
HPI - HPI Time Seen by Provider: 06/25/19 11:15 Pain Level: 2 Context: CHIEF COMPLAINT: Wound on left lower lip HPI:24-year-old male presenting with infection on the left lower lip. Patient states it started out as a cold sore approximately 10 days ago and now has pr ogressed to a crusting draining area that is uncomfortable. Worried that it does not seem to be healing properly. No fever ROS: See HPI - all other systems were reviewed and are otherwise negative Constitutional: no fever Eyes: no drainage, no blurred vision ENT: no runny nose, no sore throat, positive wound on left lower lip Integumentary: + rash Allergy: no hives MEDICATIONS: I agree with the patient medications as charted by the RN. ALLERGIES: I agree with the allergies as charted by the RN. PAST MEDICAL HISTORY/PAST SURGICAL HISTORY: Reviewed and agree as charted by RN. SOCIAL HISTORY: Reviewed and agree as charted by RN. FAMILY HISTORY: No significant familial comorbid conditions directly related to patient complaint EXAM: Reviewed vital signs as charted by RN. CONSTITUTIONAL: Alert and oriented and responds appropriately to questions. Well-appearing; well-nourished, mild distress secondary to discomfort HEAD: Normocephalic; atraumatic EYES: PERRL; Conjunctivae clear, sclerae non-icteric ENT: normal nose; no rhinorrhea; moist mucous membranes; pharynx without lesions noted, no uvula edema or deviation, no tonsillar hypertrophy, phonation normal. There is a crusting small ulcerative type lesion on the left lower lip with some scabbing present. Patient does appear to have multiple raised erythematous papules over the face suggesting impetigo NECK: Supple without meningismus; non-tender; no cervical lymphadenopathy, no masses CARD: symmetric distal pulses RESP: Normal chest excursion without splinting or tachypnea Abd: Nondistended BACK: The back appears normal EXT: Normal ROM in all joints; no cyanosis, no effusions, no edema SKIN: Normal color for age and race; warm; dry; good turgor NEURO: Moves all extremities equally; Motor and sensory function intact PSYCH: The patient's mood and manner are appropriate. Grooming and personal hygiene are appropriate. MDM: 24-year-old male with an impetigo-like lesion to the left lower lip, states it started out as a small cold sore, after 10 days no indication for antivirals but likely a secondary infection will place on Keflex follow-up PCP - REPRODUCTIVE Reproductive: DENIES: : Past Medical History - Social History Smoking Status: Current Every Day Smoker Chew tobacco use (# tins/day): No Frequency of alcohol use: None Drug Abuse: None Family History: Reviewed & Not Pertinent Patient has suicidal ideation: No Patient has homicidal ideation: No Renal/ Medical History: Denies: Hx Peritoneal Dialysis Musculoskeletal Medical History: Reports Hx Musculoskeletal 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 IN LAST 30 DAYS: No Course - Vital Signs Vital signs: Temp Pulse Resp BP Pulse Ox 97.9 F 88 18 132/65 H 98 06/25/19 10:30 06/25/19 10:30 06/25/19 10:30 06/25/19 10:30 06/25/19 10:30 Discharge - Discharge Clinical Impression: Impetigo Condition: Stable Disposition: HOME, SELF-CARE Additional Instructions: Take the antibiotics as prescribed follow-up with primary care for further evaluation and treatment as needed Prescriptions: Cephalexin Monohydrate [Keflex 500 mg Capsule] 500 mg PO Q6H 7 Days #28 capsule
[2019-06-25 11:37] VITALS: BP 127/80
== END 2019-06-25 11:35 | disposition home or self-care (01) ==
LOC: ER 10:24
DX: L01.00 Impetigo, unspecified (principal); F17.200 Nicotine dependence, unspecified, uncomplicated

== ENCOUNTER 2019-08-21 16:58 | Emergency (ER) | payer SELFPAY ==
[2019-08-21 17:06] VITALS: BP 123/71
--- NOTE | 2019-08-21 17:07 | ER Document Report ---
ED Medical Screen (RME) - General Chief Complaint: Abscess Stated Complaint: POSSIBLE ABSCESS Time Seen by Provider: 08/21/19 17:02 Mode of Arrival: Ambulatory Information source: Patient Notes: Patient presents emergency department with reports he had a pimple in between his eyes to the bridge of his nose on Saturday. He attempted to pop it without success. Saturday night he took a needle to it and obtained a little bit of pus. Today area swollen, very tender to bilateral eyes with erythema. Denies fever vomiting diarrhea. Denies history of MRSA. I have greeted and performed a rapid initial assessment of this patient. A comprehensive ED assessment and evaluation of the patient, analysis of test results and completion of the medical decision making process will be conducted by additional ED providers. TRAVEL OUTSIDE OF THE [place] 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
[2019-08-21 17:40] LABS: ABSOLUTE EOSINOPHILS # (AUTO) 0.3 10^3/uL (0.0-0.6); ABSOLUTE LYMPHOCYTES (AUTO) 1.7 10^3/uL (0.5-4.7); ABSOLUTE NEUT (AUTO) 6.3 10^3/uL (1.7-8.2); BASOPHILS % (AUTO) 0.5 % (0-2); HEMATOCRIT 43.9 % (37.9-51.0); HEMOGLOBIN 15.2 g/dL (13.5-17.0); LYMPHOCYTES % (AUTO) 18.6 % (13-45); MEAN CORPUSCULAR HEMOGLOBIN 28.3 pg (27.0-33.4); MEAN CORPUSCULAR HGB CONC 34.6 g/dL (32.0-36.0); MEAN CORPUSCULAR VOLUME 82 fl (80-97); MONOCYTES % (AUTO) 10.6 % (3-13); PLATELET COUNT 216 10^3/uL (150-450); RED BLOOD COUNT 5.37 10^6/uL (4.35-5.55); RED CELL DISTRIBUTION WIDTH 12.5 % (11.5-14.0); SEGMENTED NEUTROPHILS % (AUTO) 67.3 % (42-78); TOTAL CELLS COUNTED % (AUTO) 100 %; WHITE BLOOD COUNT 9.4 10^3/uL (4.0-10.5)
[2019-08-21 17:57] LABS: ALBUMIN 4.1 g/dL (3.5-5.0); ALKALINE PHOSPHATASE 104 U/L (38-126); ANION GAP 6 (5-19); ASPARTATE AMINO TRANSFERASE 32 U/L (17-59); BILIRUBIN,TOTAL 0.8 mg/dL (0.2-1.3); BLOOD UREA NITROGEN 13 mg/dL (7-20); CALCIUM 9.5 mg/dL (8.4-10.2); CARBON DIOXIDE 30 mmol/L (22-30); CHLORIDE 101 mmol/L (98-107); GLUCOSE 93 mg/dL (75-110); TOTAL PROTEIN 7.3 g/dL (6.3-8.2)
== END 2019-08-21 19:16 | disposition left against medical advice (07) ==
LOC: ER 16:58
DX: J34.0 Abscess, furuncle and carbuncle of nose (principal)
CPT/HCPCS: 36415; 80053; 85025; 99281

== ENCOUNTER 2019-12-12 10:31 | Emergency (ER) | payer SELFPAY ==
[2019-12-12 10:39] VITALS: BP 125/54
--- NOTE | 2019-12-12 10:50 | ER Document Report ---
ED Skin Rash/Insect Bite/Abscs - General Chief Complaint: Abscess Stated Complaint: POSSIBLE SPIDER BITE Time Seen by Provider: 12/12/19 10:41 Primary Care Provider: [facility] [Provider [facility]] - Follow up as needed [facility] [Provider Group] - Follow up as needed DIANE CABRALES MD [ACTIVE STAFF] - Follow up as needed ZAHRA GAUTHIER MD [ACTIVE STAFF] - Follow up as needed Mode of Arrival: Ambulatory Information source: Patient Notes: 24-year-old male presented to ED insect bite to the right buttocks that is red and inflamed there is no bull's-eye noted to the area. It is red and inflamed. I did sherry it with a 18-gauge needle with minimal pus returned. I have started him on Bactrim and Keflex given him instructions on Epson salt soaks. He is to return to the ED for any increase in pain drainage or size. He verbalized understanding and agreement with this treatment plan. TRAVEL OUTSIDE OF THE [place] IN LAST 30 DAYS: No - HPI Patient complains to provider of: Skin rash/lesion, Tender/swollen area, Insect bite Onset: Other Onset/Duration: Gradual - 3 days Quality of pain: Sharp, Throbbing Severity: Severe Pain Level: 5 Skin Character: Erythema, Macules, Papules, Swelling, Tenderness Skin Temperature: Warm Quality of rash: Painful Identify cause: Yes - States an insect bite Exacerbated by: Walking Relieved by: Denies Similar symptoms previously: Yes Recently seen / treated by doctor: No - Related Data Allergies/Adverse Reactions: No Known Allergies Allergy (Verified 08/21/19 17:02) Past Medical History - General Information source: Patient - Social History Smoking Status: Current Every Day Smoker Cigarette use (# per day): Yes Smoking Education Provided: Yes Frequency of alcohol use: None Drug Abuse: None Family History: Reviewed & Not Pertinent Patient has suicidal ideation: No Patient has homicidal ideation: No - Past Medical History Cardiac Medical History: Reports: None Pulmonary Medical History: Reports: None EENT Medical History: Reports: None Neurological Medical History: Reports: None Endocrine Medical History: Reports: None Renal/ Medical History: Reports: None Malignancy Medical History: Reports None GI Medical History: Reports: None Musculoskeletal Medical History: Reports Hx Musculoskeletal Trauma - 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 Skin Medical History: Reports None Psychiatric Medical History: Reports: None Traumatic Medical History: Reports: None Infectious Medical History: Reports: None Past Surgical History: Reports: Hx Orthopedic Surgery - reattachment of thumb - Immunizations Immunizations up to date: Yes Hx Diphtheria, Pertussis, Tetanus Vaccination: Yes Review of Systems - Review of Systems Constitutional: No symptoms reported EENT: No symptoms reported Cardiovascular: No symptoms reported Respiratory: No symptoms reported Gastrointestinal: No symptoms reported Genitourinary: No symptoms reported Male Genitourinary: No symptoms reported Musculoskeletal: No symptoms reported Skin: Other - Insect bite right buttocks red inflamed Hematologic/Lymphatic: No symptoms reported Neurological/Psychological: No symptoms reported -: Yes All other systems reviewed and negative Physical Exam - Vital signs Vitals: Temp Pulse Resp BP Pulse Ox 98.4 F 62 16 125/54 L 96 12/12/19 10:35 12/12/19 10:35 12/12/19 10:35 12/12/19 10:35 12/12/19 10:35 Interpretation: Normal - General General appearance: Appears well, Alert - HEENT Head: Normocephalic, Atraumatic Eyes: Normal Pupils: PERRL - Respiratory Respiratory status: No respiratory distress Chest status: Nontender Breath sounds: Normal Chest palpation: Normal - Cardiovascular Rhythm: Regular Heart sounds: Normal auscultation Murmur: No - Abdominal Inspection: Normal Distension: No distension Bowel sounds: Normal Tenderness: Nontender Organomegaly: No organomegaly - Back Back: Normal, Nontender - Extremities General upper extremity: Normal inspection, Nontender, Normal color, Normal ROM, Normal temperature General lower extremity: Normal inspection, Nontender, Normal color, Normal ROM, Normal temperature, Normal weight bearing. No: Efra's sign - Neurological Neuro grossly intact: Yes Cognition: Normal Orientation: AAOx4 [place] Coma Scale Eye Opening: Spontaneous [place] Coma Scale Verbal: Oriented [place] Coma Scale Motor: Obeys Commands [place] Coma Scale Total: 15 Speech: Normal Motor strength normal: LUE, RUE, LLE, RLE Sensory: Normal - Psychological Associated symptoms: Normal affect, Normal mood - Skin Skin Temperature: Warm Skin Moisture: Dry Skin Color: Normal Skin irregularity: Abscess Location of irregularity: Other - Right buttock Character of irregularity: Erythematous Irregularity with: Swelling, Tenderness, Warmth, Inflammation Course - Vital Signs Vital signs: Temp Pulse Resp BP Pulse Ox 98.4 F 62 16 125/54 L 96 12/12/19 10:35 12/12/19 10:35 12/12/19 10:35 12/12/19 10:35 12/12/19 10:35 Procedures - Incision and Drainage Right Buttock Time completed: 10:56 Type: Simple Anesthetic type: Other - 0 mL's of anesthetic: 0 Blade size: Other - 18 ga Incision Method: Incision made with needle Amount/type of drainage: Mall amount purulent Discharge - Discharge Clinical Impression: Abscess of right buttock Condition: Stable Disposition: HOME, SELF-CARE Additional Instructions: ABSCESS: You have an abscess (boil). This a pus-forming infection, usually due to staph. Some boils may be left to drain on their own, but most require lancing. From the time the tender lump first appears, it may be three or four days before the abscess is ready to sherry. Local heat and rest help at this stage of treatment. An antibiotic may prevent spread of the infection. Once the abscess is opened, packing may be placed into it. This is done so pus is not sealed inside by premature closure of the cavity. The packing will be removed at your follow-up visit or you may be advised to remove it yourself at home. Sometimes this packing must be replaced a few times during healing. The wound will heal with surprisingly little scar. Depending on the size and location of an abscess, healing can take one to four weeks. You may shower and wash the area around the incision site two or three times a day. Antibiotics may be prescribed, but are usually not necessary after an abscess has been drained. If you develop fever, chills, worsening pain, or increasing swelling in the area, call the doctor or return immediately. POST INCISION AND DRAINAGE: You have had an incision made to allow drainage of an abscess. The incision must remain open so that pus and debris can drain from the wound. If the abscess cavity is large, packing is placed. This keeps the tissues from collapsing and trapping pus inside, while the body shrinks the cavity. The packing may need to be replaced every day or two. The physician will instruct you on the packing. Keep a bulky dressing over the area. Replace it if it becomes saturated with blood or pus. Do not disturb the packing (if present). You may shower and cleanse the area with gentle soap and warm water two or three times a day. Local warmth may be soothing, and may promote faster healing. Return if you develop high fever or chills, or if you note spreading redness, increasing swelling, or increasing tenderness. Epsom Salt Soaks Soak the wound area in a container of warm epsom salt water. If you can't get the wound area into a bucket or avalos, use a folded towel soaked in the epsom salt solution and apply to the area. Use clean hot tap water (about the temperature of a very warm bath), mixing in about one (1) teaspoon for every pint of water. Two gallon --> 16 teaspoons Epsom Salts One gallon --> 8 teaspoons Epsom Salts Two quarts --> 4 teaspoons Epsom Salts One quart --> 2 teaspoons Epsom Salts Soak the wound for about 20 minutes while gently moving it around in the water. Repeat this four (4) times a day. CEPHALEXIN: The antibiotic you've been prescribed is a member of the cephalosporin class. This type of antibiotic covers a wide variety of infections, including those of the skin, lungs, and urinary tract. It's useful for staph infections. This antibiotic is slightly similar to the penicillin family. In rare cases, a person who is allergic to penicillin will also be allergic to this medication. If you have had a severe allergic reaction to penicillin, and have not taken this antibiotic since that time, notify your doctor. Antibiotics which cover many germs ("broad spectrum" antibiotics) are more likely to cause diarrhea or "yeast" infections. Women prone to vaginal yeast problems may suffer an attack after taking this antibiotic. In infants, oral thrush (white spots "stuck" on the cheek) or yeast diaper rash may result. See your doctor if these problems occur. Call at once if you develop itching, hives, shortness of breath, or lightheadedness. TRIMETHOPRIM-SULFA: You have been given a prescription for trimethoprim-sulfa (TMS, Septra, Bactrim). This is a combination antibiotic of the sulfa class, often used for urinary tract infections, middle ear infections, bronchitis, shigella intestinal infection, and Pneumocystis pneumonia. TMS is usually well-tolerated. Occasional side effects include nausea and decreased appetite. Septra is not recommended for infants less than two months of age. Do not take this medication if you have experienced severe side effects or allergy to sulfa medicine. You should stop this medicine at once and contact your physician if you develop any rash, joint pain, shortness of breath, bruising, or jaundice (yellow color in the skin), or if you develop any other new or unusual symptoms. FOLLOW-UP CARE: Most simple abscesses will not require a follow up visit. If you had packing placed in the abscess, remove it as instructed by the physician. If you have been referred to a physician for follow-up care, call the physicians office for an appointment as you were instructed or within the next two days. If you experience worsening or a significant change in your symptoms, return to the Emergency Department at any time for re-evaluation. Prescriptions: Sulfamethoxazole/Trimethoprim [Bactrim Ds Tablet] 1 each PO BID #20 tablet Cephalexin Monohydrate [Keflex 500 mg Capsule] 500 mg PO QID #20 capsule Forms: Elevated Blood Pressure, Smoking Cessation Education, Return to Work Referrals: [facility] [Provider Group] - Follow up as needed [facility] [Provider Group] - Follow up as needed ZAHRA GAUTHIER MD [ACTIVE STAFF] - Follow up as needed DIANE CABRALES MD [ACTIVE STAFF] - Follow up as needed
== END 2019-12-12 10:53 | disposition home or self-care (01) ==
LOC: ER 10:31
DX: L02.31 Cutaneous abscess of buttock (principal); F17.210 Nicotine dependence, cigarettes, uncomplicated
CPT/HCPCS: 99281

== ENCOUNTER 2019-12-14 13:29 | Emergency (ER) | payer SELFPAY ==
[2019-12-14] MEDS ORDERED: LIDOCAINE 1% INJ-PF (10 MG/ML) 30 ML SDV INJ ONE (15:15)
[2019-12-14 16:03] LABS: ABSOLUTE BASOPHILS # (AUTO) 0.1 10^3/uL (0.0-0.2); ABSOLUTE EOSINOPHILS # (AUTO) 0.2 10^3/uL (0.0-0.6); ABSOLUTE LYMPHOCYTES (AUTO) 2.1 10^3/uL (0.5-4.7); ABSOLUTE MONOCYTES (AUTO) 0.7 10^3/uL (0.1-1.4); ABSOLUTE NEUT (AUTO) 5.9 10^3/uL (1.7-8.2); BASOPHILS % (AUTO) 0.7 % (0-2); EOSINOPHILS % (AUTO) 2.5 % (0-6); HEMATOCRIT 44.4 % (37.9-51.0); HEMOGLOBIN 15.6 g/dL (13.5-17.0); LYMPHOCYTES % (AUTO) 23.4 % (13-45); MEAN CORPUSCULAR VOLUME 83 fl (80-97); MONOCYTES % (AUTO) 8.1 % (3-13); PLATELET COUNT 212 10^3/uL (150-450); RED BLOOD COUNT 5.36 10^6/uL (4.35-5.55); RED CELL DISTRIBUTION WIDTH 13.5 % (11.5-14.0); SEGMENTED NEUTROPHILS % (AUTO) 65.3 % (42-78); TOTAL CELLS COUNTED % (AUTO) 100 %; WHITE BLOOD COUNT 9.1 10^3/uL (4.0-10.5)
--- NOTE | 2019-12-14 17:11 | ER Document Report ---
ED Skin Rash/Insect Bite/Abscs - General Chief Complaint: Abscess Stated Complaint: ABSCESS Time Seen by Provider: 12/14/19 15:15 Primary Care Provider: [facility] [Provider Group] - Follow up as needed Mode of Arrival: Ambulatory Information source: Patient Notes: Patient is a 24-year-old male comes emergency room complaining of increasing pain and discomfort with his abscess on his right buttocks. Patient was seen 2 days prior to today had a attempted needle aspiration which returned nothing patient was sent out on Keflex. He returns today stating the pain is worse and does not believe the antibiotics is working. He denies any fevers no nausea no vomiting no diarrhea. TRAVEL OUTSIDE OF THE [place] IN LAST 30 DAYS: No - HPI Patient complains to provider of: Tender/swollen area, Insect bite Onset: Last week Onset/Duration: Sudden, Persistent, Worse Quality of pain: Achy, Burning, Sharp Severity: Severe Pain Level: 4 Skin Character: Abscess Skin Temperature: Hot Quality of rash: Painful, Burning Identify cause: No Exacerbated by: Sitting, Walking Similar symptoms previously: Yes Recently seen / treated by doctor: Yes - Related Data Allergies/Adverse Reactions: No Known Allergies Allergy (Verified 12/14/19 15:11) Home Medications: atb Past Medical History - General Information source: Patient - Social History Smoking Status: Current Every Day Smoker Chew tobacco use (# tins/day): No Frequency of alcohol use: None Drug Abuse: None Family History: Reviewed & Not Pertinent Patient has homicidal ideation: No Renal/ Medical History: Denies: Hx Peritoneal Dialysis Musculoskeletal Medical History: Reports Hx Musculoskeletal Trauma - 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 Past Surgical History: Reports: Hx Orthopedic Surgery - reattachment of thumb - Immunizations Immunizations up to date: Yes Hx Diphtheria, Pertussis, Tetanus Vaccination: Yes Review of Systems - Review of Systems Constitutional: No symptoms reported EENT: No symptoms reported Cardiovascular: No symptoms reported Respiratory: No symptoms reported Gastrointestinal: No symptoms reported Genitourinary: No symptoms reported Male Genitourinary: No symptoms reported Musculoskeletal: No symptoms reported Skin: Other Hematologic/Lymphatic: No symptoms reported Neurological/Psychological: No symptoms reported -: Yes All other systems reviewed and negative Physical Exam - Vital signs Vitals: Temp Pulse Resp BP Pulse Ox 97.8 F 69 18 121/58 L 97 12/14/19 13:46 12/14/19 13:46 12/14/19 13:46 12/14/19 13:46 12/14/19 13:46 Interpretation: Normal - Notes Notes: PHYSICAL EXAMINATION: GENERAL: Patient is a well-nourished well-developed 24-year-old male who is in no apparent distress on physical exam this afternoon. Patient does appear uncomfortable. LUNGS: Breath sounds clear to auscultation bilaterally and equal. No wheezes rales or rhonchi. HEART: Regular rate and rhythm without murmurs ABDOMEN: Soft, nontender, nondistended abdomen. No guarding, no rebound. No masses appreciated. Musculoskeletal: Normal range of motion, no pitting or edema. No cyanosis. NEUROLOGICAL: Normal speech, normal gait. Normal sensory, motor exams PSYCH: Normal mood, normal affect. SKIN: Examination of patient's area of concern is his buttocks. Primarily the right side of the buttocks. There is an area there that is approximately 10 cm long by 5 cm wide in the center of that is a 3 x 3 area of fluctuance and induration. Moderate tenderness to palpation. No bruising noted on pressure being applied to the area. Course - Re-evaluation Re-evalutation: 12/15/19 00:06 And I&D was performed and a moderate amount of serosanguineous whitish pus was expressed. Patient had relief after the drainage occurred. And iodoform was placed. Patient tolerated very well. We will keep him on his Keflex and will add doxycycline. Patient's been instructed return in 48 hours of the iodoform does not come out for reevaluation. - Vital Signs Vital signs: Temp Pulse Resp BP Pulse Ox 97.8 F 78 16 118/78 99 12/14/19 17:40 12/14/19 17:40 12/14/19 17:40 12/14/19 17:40 12/14/19 17:40 - Laboratory Result Diagrams: 12/14/19 15:37 Procedures - Incision and Drainage Right Buttock Type: Complex Anesthetic type: 1% Lidocaine mL's of anesthetic: 10 Blade size: 11 I&D procedure: Betadine prep applied, Iodoform packing placed, Sterile dressing applied Incision Method: Incision made by scalpel Amount/type of drainage: Moderate amount of sero-sanguinous white pus. Notes: 12/14/19 17:09 Size is marked as 10 x 5 cm. This was the extent of the erythema surrounding at the actual fluctuant area was approximately 3-1/2 x 4. Discharge - Discharge Clinical Impression: Abscess Condition: Stable Disposition: HOME, SELF-CARE Instructions: Abscess ([facility]), MRSA Cellulitis ([facility]), Oral Narcotic Medication ([facility]), Post Incision and Drainage Additional Instructions: As we discussed you need to use warm moist compresses 3-4 times a day. This is a washrag as warm as you can stand from the sink letter cooldown and reheated again and then cool down again. If for any reason that string comes out it is not a problem as long as it is looking like it is getting better. Just continuing with your warm moist soaks. Do not submerge herself and a [place] bathtub because you have a piece of string that is central to going inside your body which can attract bacteria. You may take a shower and let the water run over it. You can also take ibuprofen and Tylenol for pain discomfort. As we discussed return here in 48 hours to have this drain removed or sooner if it appears is not healing appropriately. Continue taking the cephalexin as prescribed as well. Prescriptions: Doxycycline Monohydrate 100 mg PO BID #20 tablet Hydrocodone/Acetaminophen [[place] 5-325 mg Tablet] 1 tab PO Q6 PRN #10 tablet PRN Reason: Forms: Elevated Blood Pressure, Smoking Cessation Education, Return to Work Referrals: [facility] [Provider Group] - Follow up as needed
[2019-12-14 17:53] VITALS: BP 118/78
== END 2019-12-14 17:52 | disposition home or self-care (01) ==
LOC: ER 13:29
DX: L02.31 Cutaneous abscess of buttock (principal); F17.200 Nicotine dependence, unspecified, uncomplicated
CPT/HCPCS: 36415; 85025; 87070; 87077; 87186; 87205; 99283